=== PATIENT | male | born 1965 | race African-American/Black ===

== ENCOUNTER 2022-02-01 06:04 | Inpatient (IN) ==
[2022-01-25 09:42] LABS: Basophils % 0.6 % (0.0-0.8); Eosinophils # 0.1 10*3/uL (0.0-0.87); Eosinophils % 2.5 % (0.00-10.9); Hematocrit 44.2 VOL% (42.0-52.0); Hemoglobin 14.8 GM/DL (14.0-18.0); Immature Granulocytes % 0.2 %; Immature Granulocytes Absolute 0.01 #; Lymphocytes # 2.3 10*3/uL (1.4-4.0); Lymphocytes % 44.2 % (21.2-54.2); Mean Corpuscular HGB Conc 33.5 GM/DL (32-36); Mean Corpuscular Volume 87.2 FL (87-102); Mean Platelet Volume 10.6 FL (9.6-12.0); Monocytes % 13.8 % (1.7-12.7); Neutrophils % 38.7 % (38.7-73.9); Platelet Count 265 T/CUMM (130-400); Red Blood Count 5.07 MC/CUMM (3.8-5.5); Red Cell Distribution Width 13.2 % (9.3-17.3); White Blood Count 5.2 T/CUMM (4-12)
[2022-01-25 10:13] LABS: Albumin 4.3 G/DL (3.4-5.0); Bilirubin,Total 0.7 MG/DL (0.20-1.00); Calcium 9.7 MG/DL (8.5-10.1); Osmolality,Calculated 278.5 MOS/KG (273-304); Potassium 4.7 MMOL/L (3.5-5.1); Total Protein 8.4 G/DL (6.4-8.2)
[2022-02-01] MEDS ORDERED: propofoL 200 MG/20 ML VIAL IV ONE (06:13)
[2022-02-01] MEDS ORDERED: ONDANSETRON 4 MG/2 ML VIAL ONE ×2 (06:13→11:59)
[2022-02-01] MEDS ORDERED: LIDOCAINE 2% 5 ML VIAL ONE (06:13)
[2022-02-01] MEDS ORDERED: ROCURONIUM 50 MG/5 ML VIAL IV ONE ×3 (06:13→11:59)
[2022-02-01] MEDS ORDERED: DEXAMETHASONE 4 MG/1 ML VIAL ONE (06:13)
[2022-02-01] MEDS ORDERED: SUCCINYLCHOLINE 200 MG/10 ML VIAL ONE (06:13)
[2022-02-01] MEDS ORDERED: MIDAZOLAM 2 MG/2 ML VIAL ONE (06:14)
[2022-02-01] MEDS ORDERED: fentaNYL 100 MCG/2 ML VIAL ONE ×3 (06:14→11:58)
[2022-02-01] MEDS ORDERED: GLYCOPYRROLATE 0.4 MG/2 ML VIAL ONE ×3 (06:14→11:07)
[2022-02-01] MEDS ORDERED: NEOSTIGMINE 10 MG/10 ML VIAL ONE (06:14)
[2022-02-01] MEDS ORDERED: GABAPENTIN 400 MG CAPSULE PO ONE (06:22)
[2022-02-01] MEDS ORDERED: FAMOTIDINE 20 MG TABLET PO ONE (06:22)
[2022-02-01] MEDS ORDERED: ACETAMINOPHEN 500 MG TABLET PO ONE (06:22)
[2022-02-01] MEDS ORDERED: PHENYLEPHRINE 10 MG/1 ML VIAL IV ONE (06:23)
[2022-02-01] MEDS ORDERED: ROPIVACAINE 0.5% 30 ML VIAL ONE ×2 (06:25→06:39)
[2022-02-01] MEDS ORDERED: BUPIVACAINE MPF 0.25% 30 ML VIAL ONE (06:25)
[2022-02-01] MEDS ORDERED: LIDOCAINE 1% 5 ML VIAL ONE (06:26)
[2022-02-01] MEDS ORDERED: cefTRIAXone 1,000 MG in SODIUM CHLORIDE 0.9% 100 ML IV ONE (07:00)
[2022-02-01] MEDS ORDERED: ALVIMOPAN 12 MG CAPSULE PO ONE (07:00)
[2022-02-01] MEDS ORDERED: LACTATED RINGERS 1,000 ML IV SCH (07:00)
[2022-02-01] MEDS ORDERED: KETAMINE 500 MG/10 ML VIAL ONE (07:46)
[2022-02-01 08:32] LABS: Bilirubin,Urine Negative (Negative); Blood, Urine Trace mg/dL (Negative); Glucose,Urine (UA) Negative (Negative); Ketones,Urine Negative (Negative); Mucus,Urine Occasional /LPF (Occasional); Nitrite,Urine Negative (Negative); Protein,Urine Negative (Negative); RBC,Urine 7 /HPF (0-4); Urine Appearance Clear (Clear); Urine Color Yellow (Yellow); Urine Specific Gravity > 1.030 (1.001-1.035); Urine Urobilinogen 0.2 eU/dL (<2.0); Urine pH 5.5 (4.5-8.0)
[2022-02-01] MEDS ORDERED: SEVOFLURANE 1 UNIT/15 MINUTE INH ONE ×4 (09:26→11:59)
[2022-02-01] MEDS ORDERED: SODIUM CHLORIDE 0.9% 250 ML IV ONE (09:26)
[2022-02-01] MEDS ORDERED: HYDROmorphone 1 MG/1 ML SYRINGE IV PRN (11:54)
[2022-02-01] MEDS ORDERED: diphenhydrAMINE 50 MG/1 ML VIAL IV PRN (11:54)
[2022-02-01] MEDS ORDERED: ONDANSETRON 4 MG/2 ML VIAL IV PRN (11:54)
[2022-02-01] MEDS ORDERED: CALCIUM CARBONATE CHEW 500 MG TABLET PO PRN (11:54)
[2022-02-01] MEDS ORDERED: PROMETHAZINE 25 MG/1 ML VIAL IM PRN (11:54)
[2022-02-01] MEDS ORDERED: SUGAMMADEX 200 MG/2 ML VIAL IV ONE (12:11)
[2022-02-01 12:34] LABS: Basophils % 0.1 % (0.0-0.8); Hematocrit 42.2 VOL% (42.0-52.0); Hemoglobin 13.8 GM/DL (14.0-18.0); Immature Granulocytes % 0.2 %; Immature Granulocytes Absolute 0.02 #; Lymphocytes # 1.8 10*3/uL (1.4-4.0); Lymphocytes % 18.3 % (21.2-54.2); Mean Corpuscular HGB Conc 32.7 GM/DL (32-36); Mean Corpuscular Volume 88.8 FL (87-102); Mean Platelet Volume 10.8 FL (9.6-12.0); Monocytes % 3.3 % (1.7-12.7); Neutrophils % 78.1 % (38.7-73.9); Platelet Count 275 T/CUMM (130-400); Red Blood Count 4.75 MC/CUMM (3.8-5.5); Red Cell Distribution Width 13.3 % (9.3-17.3); White Blood Count 9.7 T/CUMM (4-12)
[2022-02-01 12:52] LABS: Calcium 8.8 MG/DL (8.5-10.1); Osmolality,Calculated 274.8 MOS/KG (273-304); Potassium 5.4 MMOL/L (3.5-5.1)
[2022-02-01] MEDS: SODIUM CHLORIDE 0.9% 1,000 ML IV SCH (16:06)
[2022-02-01] MEDS ORDERED: hydrALAZINE 25 MG TABLET PO PRN (16:09)
[2022-02-01] MEDS: cefTRIAXone 1,000 MG in SODIUM CHLORIDE 0.9% 100 ML IV SCH (16:21)
[2022-02-01] MEDS: ACETAMINOPHEN 325 MG TABLET PO SCH (16:22)
[2022-02-01] MEDS: oxyCODONE/ACETAMINOPHEN 5-325 MG TABLET PO PRN (18:25)
[2022-02-01] MEDS: DOCUSATE SODIUM 100 MG CAPSULE PO SCH (20:07)
[2022-02-01] MEDS: ALVIMOPAN 12 MG CAPSULE PO SCH (20:07)
[2022-02-02] MEDS: ACETAMINOPHEN 325 MG TABLET PO SCH ×4 (02:03→20:03)
[2022-02-02] MEDS: SODIUM CHLORIDE 0.9% 1,000 ML IV SCH (02:03)
[2022-02-02] MEDS: oxyCODONE/ACETAMINOPHEN 5-325 MG TABLET PO PRN ×2 (04:50→10:47)
[2022-02-02 05:19] LABS: Calcium 8.3 MG/DL (8.5-10.1); Osmolality,Calculated 280.3 MOS/KG (273-304); Potassium 4.1 MMOL/L (3.5-5.1)
[2022-02-02 05:37] LABS: Basophils % 0.1 % (0.0-0.8); Hematocrit 38.5 VOL% (42.0-52.0); Immature Granulocytes % 0.3 %; Immature Granulocytes Absolute 0.03 #; Lymphocytes # 1.2 10*3/uL (1.4-4.0); Lymphocytes % 12.8 % (21.2-54.2); Mean Corpuscular HGB Conc 33.8 GM/DL (32-36); Mean Corpuscular Volume 86.7 FL (87-102); Mean Platelet Volume 11.4 FL (9.6-12.0); Monocytes % 11.7 % (1.7-12.7); Neutrophils % 75.1 % (38.7-73.9); Platelet Count 265 T/CUMM (130-400); Red Blood Count 4.44 MC/CUMM (3.8-5.5); Red Cell Distribution Width 13.4 % (9.3-17.3); White Blood Count 9.5 T/CUMM (4-12)
[2022-02-02] MEDS ORDERED: VALSARTAN 160 MG TABLET PO SCH (09:00)
[2022-02-02] MEDS: ALVIMOPAN 12 MG CAPSULE PO SCH ×2 (09:07→20:03)
[2022-02-02] MEDS: DOCUSATE SODIUM 100 MG CAPSULE PO SCH ×2 (09:08→20:03)
[2022-02-02] MEDS: cefTRIAXone 1,000 MG in SODIUM CHLORIDE 0.9% 100 ML IV SCH (16:09)
[2022-02-02] MEDS ORDERED: SIMVASTATIN 20 MG TABLET PO SCH (21:00)
[2022-02-03] MEDS: ACETAMINOPHEN 325 MG TABLET PO SCH ×3 (02:50→16:39)
[2022-02-03] MEDS ORDERED: BISACODYL 10 MG SUPP RECTAL ONE (07:26)
[2022-02-03 08:11] LABS: Basophils % 0.3 % (0.0-0.8); Eosinophils # 0.1 10*3/uL (0.0-0.87); Eosinophils % 0.6 % (0.00-10.9); Hematocrit 38.7 VOL% (42.0-52.0); Hemoglobin 13.1 GM/DL (14.0-18.0); Immature Granulocytes % 0.2 %; Immature Granulocytes Absolute 0.02 #; Lymphocytes # 1.8 10*3/uL (1.4-4.0); Lymphocytes % 20.1 % (21.2-54.2); Mean Corpuscular HGB Conc 33.9 GM/DL (32-36); Mean Corpuscular Volume 86.6 FL (87-102); Mean Platelet Volume 11.1 FL (9.6-12.0); Monocytes % 11.1 % (1.7-12.7); Neutrophils % 67.7 % (38.7-73.9); Platelet Count 231 T/CUMM (130-400); Red Blood Count 4.47 MC/CUMM (3.8-5.5); Red Cell Distribution Width 13.2 % (9.3-17.3)
[2022-02-03] MEDS: ALVIMOPAN 12 MG CAPSULE PO SCH (08:20)
[2022-02-03] MEDS: DOCUSATE SODIUM 100 MG CAPSULE PO SCH (08:20)
[2022-02-03] MEDS: oxyCODONE/ACETAMINOPHEN 5-325 MG TABLET PO PRN (08:24)
[2022-02-03 08:26] LABS: Calcium 8.6 MG/DL (8.5-10.1); Osmolality,Calculated 276.5 MOS/KG (273-304); Potassium 3.7 MMOL/L (3.5-5.1)
[2022-02-03 11:51] VITALS: BP 151/85
== END 2022-02-03 15:02 | disposition home or self-care (01) | DRG 708 ==
LOC: N.OR 06:04 → N.SDSINP 06:06 → N.5E 12:51
PROVIDERS: ADMIT Surgery; ATTEND Surgery